=== PATIENT | female | born 1980 | race African-American/Black ===

== ENCOUNTER 2020-10-15 18:50 | Inpatient (IN) | payer BC, SELFPAY ==
[~2020-10-15] VITALS: Ht 167.6 cm; Wt 77.1 kg
[2020-10-15] MEDS ORDERED: DINOPROSTONE 10 MG SUPP VG ONE (20:30)
[2020-10-15] MEDS ORDERED: LR 1,000 ML IV SCH (20:30)
[2020-10-15] MEDS ORDERED: NALBUPHINE HCL 10 MG/ML AMP IVP PRN (20:30)
[2020-10-15] MEDS ORDERED: TERBUTALINE SULFATE 1 MG/ML VIAL SUBCUT ONE (20:30)
[2020-10-15 21:14] LABS: BASOPHILS # (AUTO) 0.1 K/uL (0.0-0.2); BASOPHILS % (AUTO) 1.1 % (0.0-2.0); EOSINOPHILS # (AUTO) 0.3 K/uL (0.0-0.4); EOSINOPHILS % (AUTO) 2.8 % (0.0-4.0); HEMATOCRIT 28.7 % (36-48); HEMOGLOBIN 9.9 g/dL (12.0-16.0); LYMPHOCYTES # (AUTO) 2.2 K/uL (1.0-5.5); LYMPHOCYTES % (AUTO) 24.1 % (20.5-51.5); MEAN CORPUSCULAR HEMOGLOBIN 33 pg (27-31); MEAN CORPUSCULAR HGB CONC 35 % (32-36); MEAN CORPUSCULAR VOLUME 96 fL (79.0-98.0); MONOCYTES # (AUTO) 1.1 K/uL (0.0-1.0); MONOCYTES % (AUTO) 11.6 % (1.7-9.3); NEUTROPHILS # (AUTO) 5.6 K/uL (1.8-7.7); NEUTROPHILS % (AUTO) 60.4 % (40.0-70.0); PLATELET COUNT (AUTO) 260 K/uL (130-430); RED BLOOD CELL COUNT(AUTO) 3.01 MIL/uL (4.2-6.2); RED CELL DISTRIBUTION WIDTH 16.2 % (9.0-15.0); WHITE BLOOD COUNT (AUTO) 9.3 K/uL (4.8-10.8)
[2020-10-15 22:47] VITALS: BP_SYST 138
[2020-10-15] MEDS ORDERED: FLU VACC QS2020-21 (6 mos & up) 0.5 ML/SYRINGE I.M. PRN (23:00)
[2020-10-16] MEDS ORDERED: ROPIVACAINE HCL/PF 0.2% 200 ML ONE ×2 (10:33→23:59)
[2020-10-16] MEDS ORDERED: fentaNYL CITRATE/PF 100 MCG/2 ML AMP ONE ×2 (10:33→23:59)
[2020-10-16] MEDS ORDERED: ONDANSETRON HCL 4 MG/2 ML VIAL IVP PRN (11:15)
[2020-10-16] MEDS ORDERED: FENT2mCg/mL-ROPIVA0.2%/NS EPID 200 ML EP SCH (11:15)
[2020-10-16] MEDS ORDERED: DIPHENHYDRAMINE INJ 50 MG/ML VIAL IVP PRN (11:15)
[2020-10-16] MEDS: OXYTOCIN/0.9 % SODIUM CHLORIDE 1,000 ML IV SCH (13:38)
[2020-10-17] MEDS: OXYTOCIN/0.9 % SODIUM CHLORIDE 1,000 ML IV SCH ×2 (06:15→19:05)
[2020-10-17] MEDS ORDERED: HYDROmorphone 2 MG/ML VIAL ONE (08:13)
[2020-10-17] MEDS ORDERED: METHYLERGONOVINE MALEATE 0.2 MG/ML AMP IM ONE (08:15)
[2020-10-17] MEDS ORDERED: HYDROmorphone 2 MG/ML VIAL IVP ONE (08:15)
[2020-10-17] MEDS ORDERED: METHYLERGONOVINE MALEATE 0.2 MG/ML AMP ONE (08:23)
[2020-10-17] MEDS ORDERED: CEFAZOLIN 2 GM IVPB PREMIX 50 ML IV ONE ×2 (08:30)
[2020-10-17] MEDS ORDERED: ACETAMINOPHEN 500 MG TABLET ONE (08:58)
[2020-10-17] MEDS ORDERED: RHO(D) IMMUNE GLOBULIN/MALTOSE 1500 UNITS/1.3 ML (WINHRO) IM PRN (09:15)
[2020-10-17] MEDS ORDERED: OXYCODONE/ACETAMINOPHEN 5-325 TABLET PO PRN (09:15)
[2020-10-17] MEDS ORDERED: DIPH-TET-PERTUS Vaccine 0.5 ML VIAL (ADACEL) I.M. PRN (09:15)
[2020-10-17] MEDS ORDERED: ANUSOL 1 EA SUPP.RECT (PREPARATION H) RC PRN (09:15)
[2020-10-17] MEDS ORDERED: WITCH HAZEL LEAF 1 MED.PAD MED.PAD TP PRN (09:15)
[2020-10-17] MEDS ORDERED: DERMOPLAST SPRAY TP PRN (09:15)
[2020-10-17] MEDS ORDERED: NALOXONE HCL 0.4 MG/ML AMP (NARCAN) IVP PRN (09:15)
[2020-10-17] MEDS ORDERED: MEASLES,MUMPS&RUBELLA VACC/PF 12500 UNIT/0.5 ML VIAL SUBQ PRN (09:15)
[2020-10-17] MEDS ORDERED: OXYTOCIN/0.9 % SODIUM CHLORIDE 1,000 ML IV ONE (09:15)
[2020-10-17] MEDS ORDERED: METHYLERGONOVINE MALEATE 0.2 MG TABLET PO PRN (09:15)
[2020-10-17] MEDS ORDERED: SENNOSIDES/DOCUSATE SODIUM 1 TAB TABLET(SENOKOT-S) PO PRN (09:15)
[2020-10-17] MEDS ORDERED: ACETAMINOPHEN 650 MG SUPP.RECT RC PRN (09:15)
[2020-10-17] MEDS ORDERED: HYDROcodone/ACETAMIN 5-325 MG TAB (NORCO/ VICODIN) PO PRN (09:15)
[2020-10-17] MEDS ORDERED: LANOLIN 7 GM OINT. TP PRN (09:15)
[2020-10-17] MEDS ORDERED: HYDROCORTISONE 0.5%, 28.35 GM TOPICAL CREAM TP PRN (09:15)
[2020-10-17] MEDS ORDERED: ONDANSETRON HCL 4 MG/2 ML VIAL IVP PRN (10:45)
[2020-10-17] MEDS ORDERED: LABETALOL 100 MG/ 20ML VIAL IVP ONE (10:45)
[2020-10-17 11:27] LABS: HEMOGLOBIN 7.8 g/dL (12.0-16.0)
[2020-10-17 11:35] LABS: HEMATOCRIT 23.6 % (36-48); MEAN CORPUSCULAR HEMOGLOBIN 32 pg (27-31); MEAN CORPUSCULAR HGB CONC 33 % (32-36); MEAN CORPUSCULAR VOLUME 96 fL (79.0-98.0); PLATELET COUNT (AUTO) 97 K/uL (130-430); RED BLOOD CELL COUNT(AUTO) 2.45 MIL/uL (4.2-6.2); RED CELL DISTRIBUTION WIDTH 15.8 % (9.0-15.0)
[2020-10-17 12:12] LABS: WHITE BLOOD COUNT (AUTO) 31.4 K/uL (4.8-10.8)
[2020-10-17 12:20] LABS: ATYPICAL LYMPHOCYTES % 0 % (0-0); BAND % (MANUAL) 13 % (0-6); BASOPHILS % (MANUAL) 0 % (0-2); EOSINOPHILS % (MANUAL) 0 % (0-7); LYMPHOCYTES % (MANUAL) 4 % (20-46); MONOCYTES % (MANUAL) 6 % (0-11)
[2020-10-17] MEDS: IBUPROFEN 600 MG TABLET PO SCH ×3 (12:23→23:45)
[2020-10-17] MEDS ORDERED: METOCLOPRAMIDE HCL 10 MG/2 ML VIAL IVP PRN (13:00)
[2020-10-17] MEDS: CEFAZOLIN 1 GM IVPB PREMIX 50 ML IV SCH ×2 (14:18→20:20)
[2020-10-17] MEDS: FERROUS SULFATE 325 MG TABLET.DR PO SCH ×2 (18:08→23:45)
[2020-10-17] MEDS: DOCUSATE SODIUM 100 MG CAPSULE PO PRN (18:08)
[2020-10-17] MEDS: OXYCODONE/ACETAMINOPHEN 5-325 TABLET PO PRN ×2 (18:09→21:19)
[2020-10-17] MEDS ORDERED: TEMAZEPAM 15 MG CAPSULE PO PRN (21:00)
[2020-10-18] MEDS: OXYTOCIN/0.9 % SODIUM CHLORIDE 1,000 ML IV SCH (03:15)
[2020-10-18] MEDS: OXYCODONE/ACETAMINOPHEN 5-325 TABLET PO PRN (05:44)
[2020-10-18] MEDS: IBUPROFEN 600 MG TABLET PO SCH ×3 (05:44→17:59)
[2020-10-18] MEDS: DOCUSATE SODIUM 100 MG CAPSULE PO PRN ×2 (05:45→17:59)
[2020-10-18 06:26] LABS: MEAN CORPUSCULAR HEMOGLOBIN 32 pg (27-31); MEAN CORPUSCULAR HGB CONC 34 % (32-36); MEAN CORPUSCULAR VOLUME 94 fL (79.0-98.0); PLATELET COUNT (AUTO) 188 K/uL (130-430); RED BLOOD CELL COUNT(AUTO) 2.06 MIL/uL (4.2-6.2); RED CELL DISTRIBUTION WIDTH 16.4 % (9.0-15.0)
[2020-10-18 06:36] LABS: HEMATOCRIT 19.3 % (36-48); HEMOGLOBIN 6.6 g/dL (12.0-16.0)
[2020-10-18] MEDS: FERROUS SULFATE 325 MG TABLET.DR PO SCH ×3 (09:57→21:39)
[2020-10-18 11:40] LABS: BAND % (MANUAL) 13 % (0-6); EOSINOPHILS % (MANUAL) 0 % (0-7); LYMPHOCYTES % (MANUAL) 12 % (20-46); MONOCYTES % (MANUAL) 8 % (0-11)
[2020-10-18 11:41] LABS: BASOPHILS % (MANUAL) 0 % (0-2)
[2020-10-19] MEDS: IBUPROFEN 600 MG TABLET PO SCH ×3 (00:13→11:55)
[2020-10-19] MEDS: DOCUSATE SODIUM 100 MG CAPSULE PO PRN (06:39)
[2020-10-19] MEDS: FERROUS SULFATE 325 MG TABLET.DR PO SCH ×2 (09:04→14:22)
== END 2020-10-19 16:30 | disposition home or self-care (01) | DRG 807 ==
LOC: SPU 18:50
PROVIDERS: ADMIT Specialist; ATTEND Specialist
PROC: 10E0XZZ Delivery of Products of Conception, External Approach (ICD-10-PCS; principal; 2020-10-16)
PROC: 3E0R3BZ Introduction of Anesthetic Agent into Spinal Canal, Percutaneous Approach (ICD-10-PCS; 2020-10-16)
PROC: 00HU33Z Insertion of Infusion Device into Spinal Canal, Percutaneous Approach (ICD-10-PCS; 2020-10-16)
DX: O76 Abnormality in fetal heart rate and rhythm complicating labor and delivery (principal); Z37.0 Single live birth; O99.02 Anemia complicating childbirth; D57.1 Sickle-cell disease without crisis; Z3A.37 37 weeks gestation of pregnancy; Z20.822 Contact with and (suspected) exposure to COVID-19
CPT/HCPCS: 36415; 85007; 85025; 85027; 86886; 86900; 86901; J0690; J1170; J2210; J2405; J2590; J3010; J3490; J7120; U0003